=== PATIENT | male | born 1980 | race Caucasian/White ===

== ENCOUNTER 2018-07-28 10:22 | Emergency (ER) | payer OTHER ==
[2018-07-28 10:23] VITALS: BMI 33.2
--- NOTE | 2018-07-28 10:49 | ED PDOC ---
Arrival/HPI - General Time Seen by Provider: 07/28/18 10:44 Historian: Patient - History of Present Illness Narrative History of Present Illness (Text): 07/28/18 10:45 37 year old male, pmh including htn/hld/insulind dependent dm, nkda, complaining of feeling epigastric pain/nausea/vomiting with palpitation x 2 days (last episode of palpitation about 26 hours ago). Pt. stated that he has been feeling palpitation, associated with epigastric pain, admits nausea with 1 episode of vomiting this morning, no chest pain or shortness of breath, no night sweat, no dizziness, no change in vision, no diarrhea, no other medical or psychological complaints. 07/28/18 11:10 Pt. also reported that he hit his head accidentally while he was lifting, hit the rt. posterior head against concrete blocks, been having headache, no LOC. Past Medical History - Provider Review Nursing Documentation Reviewed: Yes - Infectious Disease Hx of Infectious Diseases: None - Cardiac Hx Hypertension: Yes - Endocrine/Metabolic Hx Diabetes Mellitus Type 2: Yes - Integumentary Hx Dermatological Disorder: No - Musculoskeletal/Rheumatological Hx Musculoskeletal Disorders: No - Gastrointestinal Hx Gastrointestinal Disorders: No - Genitourinary/Gynecological Hx Genitourinary Disorders: No - Psychiatric Hx Substance Use: No - Anesthesia Hx Anesthesia: No - Suicidal Assessment Feels Threatened In Home Enviroment: No Family/Social History - Physician Review Nursing Documentation Reviewed: Yes Family/Social History: Unknown Family HX Smoking Status: Unknown If Ever Smoked Hx Alcohol Use: Yes Hx Substance Use: No Allergies/Home Meds Allergies/Adverse Reactions: Allergies No Known Allergies Allergy (Verified 06/07/15 15:41) Home Medications: Home Meds Medication Instructions Recorded Confirmed Lisinopril [Prinivil] 25 mg PO DAILY 06/07/15 06/07/15 Metformin HCl 1,000 mg PO BID 06/07/15 06/07/15 Simvastatin 10 mg PO DAILY 06/07/15 06/07/15 Review of Systems - Review of Systems Constitutional: absent: Fatigue, Fevers Eyes: absent: Vision Changes ENT: absent: Hearing Changes Respiratory: absent: SOB, Cough Cardiovascular: Palpitations. absent: Chest Pain Gastrointestinal: Abdominal Pain, Nausea, Vomiting. absent: Diarrhea Skin: absent: Rash, Pruritis, Skin Lesions Neurological: Headache. absent: Dizziness Psychiatric: absent: Anxiety, Depression, Suicidal Ideation Physical Exam Vital Signs Reviewed: Yes Temperature: Afebrile Blood Pressure: Normal Pulse: Regular Respiratory Rate: Normal Appearance: Positive for: Well-Appearing, Non-Toxic, Comfortable Pain Distress: Mild Mental Status: Positive for: Alert and Oriented X 3 - Systems Exam Head: Present: Atraumatic, Normocephalic, Tenderness (rt. posterior occipital lateral region ). No: Abrasion, Laceration Pupils: Present: PERRL Extroacular Muscles: Present: EOMI Conjunctiva: Present: Normal Mouth: Present: Moist Mucous Membranes Neck: Present: Normal Range of Motion Respiratory/Chest: Present: Clear to Auscultation, Good Air Exchange. No: Respiratory Distress, Accessory Muscle Use Cardiovascular: Present: Regular Rate and Rhythm, Normal S1, S2. No: Murmurs Abdomen: Present: Tenderness (mild epigastric tenderness. ), Normal Bowel Sounds. No: Distention, Peritoneal Signs, Rebound, Guarding, McBurney's Point Tender, Rovsing's Sign Present, Hernias, Scars Back: Present: Normal Inspection. No: CVA Tenderness Upper Extremity: Present: Normal Inspection. No: Cyanosis, Edema Lower Extremity: Present: Normal Inspection. No: Edema Neurological: Present: GCS=15, CN II-XII Intact, Speech Normal, Motor Func Grossly Intact, Gait Normal, Memory Normal Skin: Present: Warm, Dry, Normal Color. No: Rashes Psychiatric: Present: Alert, Oriented x 3, Normal Insight, Normal Concentration Medical Decision Making ED Course and Treatment: 07/28/18 10:50 DKA vs. Hyperglycemia vs. cholecystitis vs. gastritis vs. STEMI vs. gastroparesis from poorly controlled DM vs. pancreatitis vs. ICH -labs/vbg -cxr -gallbladder sonogram -CT head -ekg -IVF/pepcid/reglan 07/28/18 14:20 -EKG: NSR @ 75 BPM, no ST elevation or depression, Chronic T wave inversion on lead III/aVR/aVF, compared with previous ekg with no acute changes. -Chest X-Ray: Emergency room wet read with no active disease -CT Head: Normal CT of the Head. No evidence of acute intracranial hemorrhage. -Gallbladder sonogram: Cholelithiasis without evidence of cholecystitis. Fatty infiltration of the liver. Otherwise unremarkable. -Labs: show no acute findings except glucose 498 (fluid and insulin ordered) -Lipase within normal limit -Trop is negative after 24 hours. -VBG show normal PH -HEART score is low. -repeated FS 238 -All labs and radiology results discussed with the patient, pt. is asymptomatic at this time, eating and drinking well, no headache, feeling well and request to be discharged home, offered admission for observation. 07/28/18 14:30 -Discharge home with pepcid, tylenol, bed rest, stay hydrated, continue all your medications, follow up with your own pmd and elementary librarian/GI/card iologist/neurologist within 2 days, return to the Emergency room for any new or worsening signs or symptoms. - RAD Interpretation Radiology Orders: -CT Head: Date of service: 07/28/2018 PROCEDURE: CT HEAD WITHOUT CONTRAST. HISTORY: rt. posterior lateral head injury x 3 days, headac COMPARISON: None available. TECHNIQUE: Axial computed tomography images were obtained through the head/brain without intravenous contrast. Radiation dose: Total exam DLP = 840.37 mGy-cm. This CT exam was performed using one or more of the following dose reduction techniques: Automated exposure control, adjustment of the mA and/or kV according to patient size, and/or use of iterative reconstruction technique. FINDINGS: HEMORRHAGE: No intracranial hemorrhage. BRAIN: No mass effect or edema. No atrophy or chronic microvascular ischemic changes. VENTRICLES: Unremarkable. No hydrocephalus. CALVARIUM: Unremarkable. PARANASAL SINUSES: Unremarkable as visualized. No significant inflammatory changes. MASTOID AIR CELLS: Unremarkable as visualized. No inflammatory changes. OTHER FINDINGS: None. IMPRESSION: Normal CT of the Head. No evidence of acute intracranial hemorrhage. -Chest X-Ray: Date of service: 07/28/2018 HISTORY: medical clearance COMPARISON: No prior. FINDINGS: LUNGS: No active pulmonary disease. PLEURA: No significant pleural effusion identified, no pneumothorax apparent. CARDIOVASCULAR: Normal. OSSEOUS STRUCTURES: No significant abnormalities. VISUALIZED UPPER ABDOMEN: Normal. OTHER FINDINGS: None. IMPRESSION: No active disease. -Gallbladder sonogram: Date of service: 07/28/2018 HISTORY: epigastric pain COMPARISON: None. TECHNIQUE: Sonographic evaluation of the right upper quadrant of the abdomen. FINDINGS: LIVER: Measures 15.2 cm in length. Diffusely increased echogenicity of the liver parenchyma. Consistent with fatty infiltration. Smooth contour. No mass. No biliary ductal dilatation. GALLBLADDER: Cholelithiasis. No mural thickening. No pericholecystic fluid. Negative sonographic Corley sign. COMMON BILE DUCT: Measures 5 mm. No stones. No dilatation. PANCREAS: Unremarkable as visualized. No mass. No ductal dilatation. RIGHT KIDNEY: Measures 12.4 cm in length. Normal echogenicity. No calculus, mass, or hydronephrosis. AORTA: No aneurysmal dilatation. IVC: Unremarkable. OTHER FINDINGS: None . IMPRESSION: Cholelithiasis without evidence of cholecystitis. Fatty infiltration of the liver. Otherwise unremarkable. Film Projector Operator: Radiologist - EKG Interpretation EKG Interpretation (Text): 07/28/18 12:55 -EKG: NSR @ 75 BPM, no ST elevation or depression, Chronic T wave inversion on lead III/aVR/aVF, compared with previous ekg with no acute changes. Interpreted by ED Physician: Yes Type: 12 lead EKG Comparison: Com.w/previous EKG - PA / TREE SPECIALIST / Resident Statement / has reviewed & agrees with the documentation as recorded. Disposition/Present on Arrival - Present on Arrival Any Indicators Present on Arrival: No History of DVT/PE: No History of Uncontrolled Diabetes: No Urinary Catheter: No History of Decub. Ulcer: No History Surgical Site Infection Following: None - Disposition Have Diagnosis and Disposition been Completed?: Yes Diagnosis: Hyperglycemia, Head injury, Epigastric pain Disposition: HOME/ ROUTINE Disposition Time: 13:41 Patient Plan: Discharge Condition: IMPROVED Additional Instructions: -Discharge home with pepcid, tylenol, bed rest, stay hydrated, continue all your medications, follow up with your own pmd and elementary librarian/GI/business objects report developer/neurologist within 2 days, return to the Emergency room for any new or worsening signs or symptoms. Prescriptions: Acetaminophen [Tylenol] 2 cap PO QID #30 capsule Famotidine [Pepcid] 20 mg PO BID #20 tab Referrals: [facility] at [facility] [place]] - Follow up with primary Victorino Borden MD [Staff Provider] - Follow up with primary Oriana Yung MD [Medical Doctor] - Follow up with primary Finn Saldaña MD [Staff Provider] - Follow up with primary Mauro Babcock MD [Medical Doctor] - Follow up with primary Ana M Mejias MD [Medical Doctor] - Follow up with primary Forms: WORK NOTE
[2018-07-28] MEDS ORDERED: Sodium Chloride 0.9% 1,000 ML IV STA (11:01)
[2018-07-28 11:17] LABS: VENOUS BLOOD GAS BASE EXCESS 0.6 mmol/L (0.0-2.0); VENOUS BLOOD GAS PO2 47 mm/Hg (30-55); VENOUS BLOOD PH 7.33 (7.32-7.43)
[2018-07-28 11:19] LABS: BASO # 0.03 K/mm3 (0.0-2.0); BASO % 0.3 % (0.0-3.0); EOS # 0.8 (0.0-0.7); EOS % 8.4 % (1.5-5.0); GRAN # 5.54 (1.4-6.5); HEMOGLOBIN 17.3 g/dL (14.0-18.0); LYMPH # 2.6 (1.2-3.4); LYMPH % 27.3 % (22.0-35.0); MEAN CELL VOLUME 81.6 fl (80.0-105.0); MEAN CORPUSCULAR HEMOGLOBIN 28.4 pg (25.0-35.0); MEAN CORPUSCULAR HGB CONC 34.8 g/dl (31.0-37.0); MONO # 0.5 (0.1-0.6); RBC 6.09 10^6/uL (3.5-6.1); RED CELL DISTRIBUTION WIDTH 12.1 % (11.5-14.5); WHITE BLOOD COUNT 9.4 10^3/ul (4.5-11.0)
[2018-07-28 11:30] VITALS: RESP 18; TEMP 98.1
[2018-07-28 11:38] LABS: TROPONIN I < 0.01 ng/mL
[2018-07-28 11:45] LABS: ALB/GLOB RATIO 1.3 (1.1-1.8); ALBUMIN 4.6 g/dL (3.0-4.8); ALT/SGPT 26 U/L (7-56); AST/SGOT 22 U/L (17-59); BLOOD UREA NITROGEN 18 mg/dL (7-21); CALCIUM 9.3 mg/dL (8.4-10.5); GFR NON-AFRICAN AMERICAN > 60; LIPASE 261 U/L (23-300)
[2018-07-28] MEDS ORDERED: Insulin Regular 1 UNITS/0.01 ML ML SC STA (11:50)
--- NOTE | 2018-07-28 12:41 | CT ---
Date of service: 07/28/2018 PROCEDURE: CT HEAD WITHOUT CONTRAST. HISTORY: rt. posterior lateral head injury x 3 days, headac COMPARISON: None available. TECHNIQUE: Axial computed tomography images were obtained through the head/brain without intravenous contrast. Radiation dose: Total exam DLP = 840.37 mGy-cm. This CT exam was performed using one or more of the following dose reduction techniques: Automated exposure control, adjustment of the mA and/or kV according to patient size, and/or use of iterative reconstruction technique. FINDINGS: HEMORRHAGE: No intracranial hemorrhage. BRAIN: No mass effect or edema. No atrophy or chronic microvascular ischemic changes. VENTRICLES: Unremarkable. No hydrocephalus. CALVARIUM: Unremarkable. PARANASAL SINUSES: Unremarkable as visualized. No significant inflammatory changes. MASTOID AIR CELLS: Unremarkable as visualized. No inflammatory changes. OTHER FINDINGS: None. IMPRESSION: Normal CT of the Head. No evidence of acute intracranial hemorrhage.
--- NOTE | 2018-07-28 13:16 | US ---
Date of service: 07/28/2018 HISTORY: epigastric pain COMPARISON: None. TECHNIQUE: Sonographic evaluation of the right upper quadrant of the abdomen. FINDINGS: LIVER: Measures 15.2 cm in length. Diffusely increased echogenicity of the liver parenchyma. Consistent with fatty infiltration. Smooth contour. No mass. No biliary ductal dilatation. GALLBLADDER: Cholelithiasis. No mural thickening. No pericholecystic fluid. Negative sonographic Corley sign. COMMON BILE DUCT: Measures 5 mm. No stones. No dilatation. PANCREAS: Unremarkable as visualized. No mass. No ductal dilatation. RIGHT KIDNEY: Measures 12.4 cm in length. Normal echogenicity. No calculus, mass, or hydronephrosis. AORTA: No aneurysmal dilatation. IVC: Unremarkable. OTHER FINDINGS: None . IMPRESSION: Cholelithiasis without evidence of cholecystitis. Fatty infiltration of the liver. Otherwise unremarkable.
[2018-07-28 15:17] VITALS: BP 130/73; PULSE 86; O2SAT 99
--- NOTE | 2018-07-28 16:18 | RAD ---
Date of service: 07/28/2018 HISTORY: medical clearance COMPARISON: No prior. FINDINGS: LUNGS: No active pulmonary disease. PLEURA: No significant pleural effusion identified, no pneumothorax apparent. CARDIOVASCULAR: Normal. OSSEOUS STRUCTURES: No significant abnormalities. VISUALIZED UPPER ABDOMEN: Normal. OTHER FINDINGS: None. IMPRESSION: No active disease.
--- NOTE | 2018-07-28 22:27 | CARD ---
APPROVED REPORT Date of service: 07/28/2018 EKG Measurement Heart [id number] <Conclusion> Normal sinus rhythm Left axis deviation Moderate voltage criteria for LVH, may be normal variant Abnormal ECG
== END 2018-07-28 14:30 | disposition home or self-care (01) ==
LOC: ED 10:22
DX: E11.65 Type 2 diabetes mellitus with hyperglycemia (principal); Z79.4 Long term (current) use of insulin; S09.90XA Unspecified injury of head, initial encounter; W22.09XA Striking against other stationary object, initial encounter; Y92.89 Other specified places as the place of occurrence of the external cause; R10.13 Epigastric pain; I10 Essential (primary) hypertension
CPT/HCPCS: 70450; 71045; 76705; 80053; 82550; 82803; 82948; 83615; 83690; 83735; 84484; 85025; 93005; 96374; 96375; 99284; J2765; J7030

== ENCOUNTER 2018-12-19 22:50 | Emergency (ER) | payer SELFPAY ==
[2018-12-19 23:21] VITALS: BMI 31.6
[2018-12-19 23:28] VITALS: TEMP 98.2
[2018-12-19] MEDS ORDERED: Sodium Chloride 0.9% 1,000 ML IV STA (23:50)
--- NOTE | 2018-12-20 00:12 | ED PDOC ---
Arrival/HPI - General Chief Complaint: GI Problem Time Seen by Provider: 12/19/18 22:54 Historian: Patient, Case Picker - History of Present Illness Narrative History of Present Illness (Text): 12/20/18 00:04 38 year old male, whose past medical history includes diabetes, who presents to the Emergency department complaining of multiple episodes of diarrhea and an occasional abdominal cramping for the past 3 days. Patient also reports associated nausea. Patient notes he had vomiting initially, but denies any currently. Patient denies any fever, chills, dizziness, chest pain, urinary symptoms, back pain, or any other symptoms. Time/Duration: < week Symptom Onset: Gradual Symptom Course: Unchanged Activities at Onset: Light Context: Home Past Medical History - Provider Review Nursing Documentation Reviewed: Yes - Infectious Disease Hx of Infectious Diseases: None - Cardiac Hx Hypertension: Yes - Endocrine/Metabolic Hx Diabetes Mellitus Type 2: Yes - Integumentary Hx Dermatological Disorder: No - Musculoskeletal/Rheumatological Hx Musculoskeletal Disorders: No - Gastrointestinal Hx Gastrointestinal Disorders: No - Genitourinary/Gynecological Hx Genitourinary Disorders: No - Psychiatric Hx Substance Use: No - Anesthesia Hx Anesthesia: No - Suicidal Assessment Feels Threatened In Home Enviroment: No Family/Social History - Physician Review Nursing Documentation Reviewed: Yes Family/Social History: Unknown Family HX Smoking Status: Current Some Days Smoker Hx Alcohol Use: Yes Frequency of alcohol use: Socially Hx Substance Use: No Allergies/Home Meds Allergies/Adverse Reactions: Allergies No Known Allergies Allergy (Verified 12/19/18 23:21) Home Medications: Home Meds Medication Instructions Recorded Confirmed Famotidine [Pepcid] 20 mg PO DAILY 12/19/18 12/19/18 Gabapentin [Neurontin] 1 tab PO TID 12/19/18 12/19/18 Insulin Human Isophane (NPH) 15 unit SC BID 12/19/18 12/19/18 [Novolin N] Insulin Human NPH/Reg [HumuLIN 15 unit SC BID 12/19/18 12/19/18 70/30 (NPH/Reg)] Magnesium Oxide [Mag-Ox] 1 tab PO DAILY 12/19/18 12/19/18 Olmesartan [BenicarNf] 1 tab PO DAILY 12/19/18 12/19/18 metFORMIN [glucOPHAGE] 1 tab PO BID 12/19/18 12/19/18 Review of Systems - Physician Review All systems were reviewed & negative as marked: Yes - Review of Systems Constitutional: absent: Fevers Respiratory: absent: Cough Cardiovascular: absent: Chest Pain Gastrointestinal: Abdominal Pain, Diarrhea, Nausea Genitourinary Male: absent: Dysuria, Frequency, Hematuria, Urinary Output Changes Musculoskeletal: absent: Back Pain, Neck Pain Neurological: absent: Headache, Dizziness Endocrine: absent: Diaphoresis Physical Exam Vital Signs Reviewed: Yes Vital Signs Temp Pulse Resp BP Pulse Ox 12/19/18 23:28 98.2 F 93 H 18 132/88 97 Temperature: Afebrile Blood Pressure: Normal Pulse: Regular Respiratory Rate: Normal Appearance: Positive for: Well-Appearing, Non-Toxic, Comfortable Pain Distress: None Mental Status: Positive for: Alert and Oriented X 3 - Systems Exam Head: Present: Atraumatic, Normocephalic Pupils: Present: PERRL Extroacular Muscles: Present: EOMI Conjunctiva: Present: Normal Mouth: Present: Moist Mucous Membranes Neck: Present: Normal Range of Motion Respiratory/Chest: Present: Clear to Auscultation, Good Air Exchange. No: Respiratory Distress, Accessory Muscle Use Cardiovascular: Present: Regular Rate and Rhythm, Normal S1, S2. No: Murmurs Abdomen: No: Tenderness, Distention, Peritoneal Signs Back: Present: Normal Inspection Upper Extremity: Present: Normal Inspection. No: Cyanosis, Edema Lower Extremity: Present: Normal Inspection. No: Edema Neurological: Present: GCS=15, CN II-XII Intact, Speech Normal Skin: Present: Warm, Dry, Normal Color. No: Rashes Psychiatric: Present: Alert, Oriented x 3, Normal Insight, Normal Concentration Medical Decision Making ED Course and Treatment: 12/20/18 00:14 Impression: 38 year old male complaining of multiple episodes of diarrhea and occasional abdominal pain x 3 day Plan: -- EKG -- Labs -- Pepcid -- IV fluids -- Zofran -- Reassess and disposition Prior Visits: Notes and results from previous visits were reviewed. Progress Notes: EKG: Ordered, reviewed, and independently interpreted the EKG. Rate : 82 BPM Rhythm : NSR Interpretation : LAD. Non-specific ST/T wave changes. 12/20/18 01:55 On re-evaluation, patient feels better and is in no acute distress. I have discussed the results and plan with the patient, who expresses understanding. Patient in agreement with plan to be discharged home. Patient is stable for discharge. Patient was instructed to follow up with physician or return if symptoms worsen or new concerning symptoms arise. - Medication Orders Current Medication Orders: Sodium Chloride (Sodium Chloride 0.9%) 1,000 mls @ 999 mls/hr IV .Q1H1M STA Stop: 12/20/18 00:50 Discontinued Medications Famotidine (Pepcid) 20 mg IVP STAT STA Stop: 12/19/18 23:51 Ondansetron HCl (Zofran Inj) 4 mg IVP ONCE ONE Stop: 12/19/18 23:51 - Scribe Statement The provider has reviewed the documentation as recorded by the Scribe Mai Ramos, training with Katie Adorno. Provider Scribe Attestation: All medical record entries made by the Scribe were at my direction and personally dictated by me. I have reviewed the chart and agree that the record accurately reflects my personal performance of the history, physical exam, medical decision making, and the department course for this patient. I have also personally directed, reviewed, and agree with the discharge instructions and disposition. Disposition/Present on Arrival - Present on Arrival Any Indicators Present on Arrival: No History of DVT/PE: No History of Uncontrolled Diabetes: No Urinary Catheter: No History of Decub. Ulcer: No History Surgical Site Infection Following: None - Disposition Have Diagnosis and Disposition been Completed?: Yes Diagnosis: Gastroenteritis Disposition: HOME/ ROUTINE Disposition Time: 01:51 Patient Plan: Discharge Patient Problems: Current Active Problems Problem Status Onset Gastroenteritis Acute Condition: GOOD Additional Instructions: Drink small amounts of liquids edwin time/advance diet slowly as tolerated/take meds as prescribed/follow up with your doctor this week Prescriptions: Dicyclomine [Dicyclomine HCl] 10 mg PO QID PRN #12 cap PRN Reason: abdominal cramps Ondansetron ODT [Zofran ODT] 4 mg PO Q6 PRN #12 odt PRN Reason: Nausea/Vomiting Forms: [facility] (Telugu), WORK NOTE
[2018-12-20 00:35] LABS: HEMOGLOBIN 15.5 g/dL (14.0-18.0); MEAN CELL VOLUME 81.9 fl (80.0-105.0); MEAN CORPUSCULAR HEMOGLOBIN 27.4 pg (25.0-35.0); MEAN CORPUSCULAR HGB CONC 33.5 g/dl (31.0-37.0); MEAN PLATELET VOLUME 8.9 fl (7.0-11.0); RBC 5.65 10^6/uL (3.5-6.1); RED CELL DISTRIBUTION WIDTH 13.1 % (11.5-14.5); WHITE BLOOD COUNT 8.2 10^3/uL (4.5-11.0)
[2018-12-20 00:41] LABS: ALB/GLOB RATIO 1.3 (1.1-1.8); ALT/SGPT 14 U/L (7-56); AST/SGOT 19 U/L (17-59); BLOOD UREA NITROGEN 18 mg/dL (7-21); CALCIUM 8.6 mg/dL (8.4-10.5); GFR NON-AFRICAN AMERICAN > 60; LIPASE 100 U/L (23-300)
[2018-12-20 02:26] VITALS: BP 127/89; PULSE 88; RESP 16; O2SAT 99
--- NOTE | 2018-12-20 17:20 | CARD ---
APPROVED REPORT Date of service: 12/20/2018 EKG Measurement Heart [id number] [id number] <Conclusion> Normal sinus rhythm Left axis deviation Moderate voltage criteria for LVH, may be normal variant Abnormal ECG
== END 2018-12-20 02:25 | disposition home or self-care (01) ==
LOC: ED 22:50
DX: K52.9 Noninfective gastroenteritis and colitis, unspecified (principal); I10 Essential (primary) hypertension; F17.210 Nicotine dependence, cigarettes, uncomplicated
CPT/HCPCS: 80053; 83690; 85027; 93005; 96361; 96374; 96375; 99283; J2405; J7030